=== PATIENT | female | born 1930 | race Caucasian/White ===

== ENCOUNTER 2017-03-29 07:57 | Outpatient (CLI) | payer MEDICARE, OTHER ==
[~2017-03-29] VITALS: Ht 167.6 cm; Wt 85.7 kg
[2017-03-29] MEDS ORDERED: BACITRACIN 50,000 UNIT in IV NORMAL SALINE 250ML 250 ML IRR ONE (08:15)
[2017-03-29 08:27] VITALS: BP 140/80
[2017-03-29 08:33] LABS: HEMATOCRIT 41.5 % (36.0-47.0); HEMOGLOBIN 13.8 g/dL (12.0-15.5); RED BLOOD COUNT 4.54 x10^6/uL (3.50-5.40)
[2017-03-29 08:42] LABS: INR 1.3 (0.8-1.1); PROTHROMBIN TIME PATIENT 15.8 SEC (11.7-14.0)
[2017-03-29] MEDS ORDERED: ATOR20TA58 PO (08:46)
[2017-03-29] MEDS ORDERED: ASPI-630 PO (08:46)
[2017-03-29] MEDS ORDERED: WARF3TAB7 PO (08:47)
[2017-03-29] MEDS ORDERED: HYDR-2758 PO (08:47)
[2017-03-29] MEDS ORDERED: VALS320T2 PO (08:47)
[2017-03-29] MEDS ORDERED: PRED20TA PO (08:47)
[2017-03-29] MEDS ORDERED: MULT1TAB52 PO (08:47)
[2017-03-29] MEDS ORDERED: OMEG1CAP38 PO (08:47)
[2017-03-29] MEDS ORDERED: ACET325T21 PO (08:47)
[2017-03-29] MEDS ORDERED: OMEP20TA8 PO (08:47)
[2017-03-29] MEDS ORDERED: FURO40TA4 PO (08:47)
[2017-03-29] MEDS ORDERED: CARV6.252 PO (08:47)
[2017-03-29] MEDS ORDERED: PROAIR HFA8.5 GM INH (08:47)
[2017-03-29] MEDS ORDERED: POTASSIUM CHLO10 MEQ PO (08:47)
[2017-03-29 08:53] LABS: CALCIUM 8.7 mg/dL (8.5-10.1); CREATININE 1.3 mg/dL (0.6-1.0); GFR 38.7; POTASSIUM 3.8 mmol/L (3.5-5.1)
[2017-03-29] MEDS ORDERED: LIDOCAINE 2%/EPI 1:100,000 20 ML VIAL. ONE (09:46)
[2017-03-29] MEDS ORDERED: MIDAZOLAM HCL/PF 2 MG/2 ML VIAL. ONE (09:50)
[2017-03-29] MEDS ORDERED: fentaNYL PF VIAL 100 MCG/2 ML VIAL ONE (09:50)
[2017-03-29] MEDS ORDERED: MIDAZOLAM HCL/PF 2 MG/2 ML VIAL. IV ONE (10:00)
[2017-03-29] MEDS ORDERED: fentaNYL PF VIAL 100 MCG/2 ML VIAL IV ONE (10:00)
[2017-03-29] MEDS ORDERED: LIDOCAINE 2%/EPI 1:100,000 20 ML VIAL. IJ ONE (10:00)
[2017-03-29 10:20] VITALS: BP 110/54
[2017-03-29 11:08] VITALS: BP 124/61
[2017-03-29 11:23] VITALS: BP 146/70
[2017-03-29 11:56] VITALS: BP 146/70
--- NOTE | 2017-03-29 14:26 | CARD ---
APPROVED REPORT HISTORY The Patient is a 86 year-old female with a history of SSS s/p pacemaker PROCEDURES 30 mL of 2% lidocaine was infiltrated into the skin and subcutaneous tissues for local anesthesia. A n incision was made over the left infraclavicular fossa and using blunt dissection and cautery the pr evious device was explanted. The previous medtronic leads were then attaced to a Kickit With dual-chamb er permanent pacemaker generator model Etrinsa 8DR-T, [id number]. This was placed in the pocket that was subsequently closed in 3 layers. Hemostasis was secured. At the end of procedure, the right ventricular lead showed sensing amplitude of 9.8 mV, impedance of 682 ohms and a threshold of 0.8volts. The right atrial lead showed a sensing amplitude of 1.2 milliv olts, impedance of 682 ohms and a threshold could not be performed due to underlying atrial fibrillat ion. Patient tolerated the procedure well. There were no immediate complications. INDICATIONS ESTELA EXPLANTED DEVICES Medtronic Generator CONCLUSION Successful pacemaker generator change for end of life.
== END 2017-03-29 12:20 | disposition home or self-care (01) ==
LOC: CCL 07:57
PROVIDERS: ATTEND Internal Medicine Cardiovascular Disease
DX: Z45.010 Encounter for checking and testing of cardiac pacemaker pulse generator [battery] (principal); I49.5 Sick sinus syndrome; I48.91 Unspecified atrial fibrillation; I50.9 Heart failure, unspecified; I25.10 Atherosclerotic heart disease of native coronary artery without angina pectoris; E78.00 Pure hypercholesterolemia, unspecified; I10 Essential (primary) hypertension; Z88.6 Allergy status to analgesic agent; Z88.8 Allergy status to other drugs, medicaments and biological substances; Z91.048 Other nonmedicinal substance allergy status
CPT/HCPCS: 33213; 36415; 80048; 85027; 85610; C1785; J0690; J2250; J3010; J3490; J7050; J7030